=== PATIENT | male | born 1955 | race Caucasian/White ===

== ENCOUNTER → 2016-10-11 | Outpatient (CLI) | payer MEDICARE ==
--- NOTE | 2016-10-11 22:36 | PN ---
DATE OF SERVICE: 10/11/2016 A 61-year-old gentleman who has been for which the sleep center for treatment of obstructive sleep apnea-hypopnea syndrome. I discussed with the patient results of diagnostic sleep study and CPAP titration which was done recently in detail. Patient presently has been started on treatment with CPAP unit. He brought CPAP unit for checking it. He thought that sometimes it is too warm air going from the machine and we discussed that he should adjust himself level of humidity and heated humidifier in the machine according to what is the best for him. I checked CPAP unit. The patient was not able to use equipment for several days recently because he developed upper respiratory infection, but usage for the last 30 days is 22 nights for more than 4 hours, which indicates more than 70% compliance and this is acceptable compliance by today's standards. It showed significant leak from the mask up to 53 L per minute with normal apnea-hypopnea index 1.6. Pressure in the machine is 14 cm of water. I checked my dictation and reviewed results of the sleep study. The pressure which I was recommended was in the range of 10, 11. MEDICATIONS: 1. Atenolol. 2. Hydrochlorothiazide. 3. Amlodipine. 4. Vitamins. 5. Claritin. 6. Pravastatin. 7. Also, presently patient is on treatment with antibiotics and steroids for recent lung infection and problem with breathing. PHYSICAL EXAMINATION: GENERAL: Patient in no distress. VITAL SIGNS: BP 148/88, HR 56, RR 16. Weight 188 pounds. Temp 98.6. Oxygen saturation at room air 94%. [place] Sleepiness Scale is 7. HEENT: PERRLA, EOMI, Evaluation of the oropharynx showed tongue protrudes midline, extremely low position of soft palate, NECK: Supple. No JVD, Thyroid is not palpable. LUNGS: Clear to percussion and to auscultation. Good air exchange. No wheezing or rhonchi. HEART: S1, S2 regular. No murmurs, gallops, or rubs. ABDOMEN: Slightly obese, soft and nontender. Bowel sounds are present. No organomegaly appreciated. TAX MAP TECHNICIAN: Awake, alert, and oriented x3. Cranial nerves 2 to 7 intact. There is no fasciculation or atrophy noted. No focal deficits observed. IMPRESSION: 1. Obstructive sleep apnea/hypopnea syndrome in close to moderate range. Apnea-hypopnea index 14.8 with oxygen desaturation to 80.1%. Patient demonstrated good compliance with treatment, benefiting from treatment. Has some problem possibly related to the pressure and humidity. 2. Recent upper respiratory infection with some bronchospastic component. 3. Severe periodic limb movements have been documented during titration during diagnostic night. 4. Overweight. 5. History of stroke without residual deficit. 6. Memory problem. 7. Hypertension. 8. Hyperlipidemia. 9. Episodes of swelling of the legs. 10. Restless leg syndrome. PLAN: 1. I changed the pressure in the machine down to 11 cm of water. 2. Patient should continue to use equipment every night for the whole night. He knows how to adjust the humidity. 3. Watching and losing weight. 4. Sleep hygiene with regular time in bed for at least 8 hours. 5. No driving if feeling any sleepiness. Thank you very much for allowing me to participate in the management of your patient. Sincerely, Kendell Paul MD, PhD, FAASM Diplomat of [place] [employer], Sleep Medicine Board by [place] [employer] [employer] [facility] [place]
== END | disposition home or self-care (01) ==
LOC: SLEEP 16:33
PROVIDERS: ATTEND Internal Medicine
DX: G47.33 Obstructive sleep apnea (adult) (pediatric) (principal); I10 Essential (primary) hypertension; E78.5 Hyperlipidemia, unspecified; Z86.73 Personal history of transient ischemic attack (TIA), and cerebral infarction without residual deficits; Z99.89 Dependence on other enabling machines and devices; Z79.899 Other long term (current) drug therapy

== ENCOUNTER 2018-08-17 03:30 | Emergency (ER) | payer MEDICARE ==
[2018-08-17 03:38] VITALS: RESP 18
--- NOTE | 2018-08-17 04:58 | XR ---
EXAMINATION TYPE: XR KUB DATE OF EXAM: 08/17/2018 4:52 AM CLINICAL HISTORY: Right-sided pain TECHNIQUE: 4 views upright COMPARISON: None. FINDINGS: The bowel gas pattern is normal. There is no sign of intestinal obstruction or pneumoperito neum. Fecal pattern is normal. There is nondisplaced fracture of the lateral aspect of the right nint h rib. I see no pleural effusion. IMPRESSION: Nonacute abdomen. Right ninth rib fracture.
[2018-08-17 05:09] LABS: ALT 46 U/L (21-72); AST 30 U/L (17-59); Albumin 4.5 g/dL (3.5-5.0); Alkaline Phosphatase 43 U/L (38-126); Amylase 61 U/L (30-110); Anion Gap 6 mmol/L; Basophils % (A) 0 %; Blood Urea Nitrogen 15 mg/dL (9-20); Calcium 9.7 mg/dL (8.4-10.2); Carbon Dioxide 27 mmol/L (22-30); Chloride 108 mmol/L (98-107); Eosinophils # (A) 0.3 k/uL (0-0.7); Eosinophils % (A) 3 %; Glucose 109 mg/dL (74-99); HCT 47.6 % (39.0-53.0); HGB 15.5 gm/dL (13.0-17.5); Lipase 113 U/L (23-300); Lymphocytes # (A) 2.2 k/uL (1.0-4.8); Lymphocytes % (A) 24 %; MCH 29.2 pg (25.0-35.0); MCHC 32.5 g/dL (31.0-37.0); MCV 89.8 fL (80.0-100.0); Mean Platelet Volume 7.2; Monocytes # (A) 0.5 k/uL (0-1.0); Monocytes % (A) 6 %; Neutrophils # (A) 6.1 k/uL (1.3-7.7); Neutrophils % (A) 66 %; Platelet Count 310 k/uL (150-450); Potassium 4.5 mmol/L (3.5-5.1); RDW 13.5 % (11.5-15.5); Sodium 141 mmol/L (137-145); Total Bilirubin 0.6 mg/dL (0.2-1.3); Total Protein 7.2 g/dL (6.3-8.2); WBC 9.3 k/uL (3.8-10.6)
[2018-08-17] MEDS ORDERED: MORPHINE SULFATE 4 MG/ML SYRINGE IV STA (05:24)
--- NOTE | 2018-08-17 06:15 | CT ---
EXAM: CT Abdomen and Pelvis Without Intravenous Contrast CLINICAL HISTORY: ITS.REASON CT Reason: Pain TECHNIQUE: Axial computed tomography images of the abdomen and pelvis without intravenous contrast. CTDI is 10+0.085 + 0.085 mGy and DLP is 513.4 mGy- cm. This CT exam was performed using one or more of the following dose reduction techniques: automated exposure control, adjustment of the mA and/or kV according to patient size, and/or use of iterative reconstruction technique. COMPARISON: X-ray dated 08/17/2018. FINDINGS: Lung bases: Unremarkable. No mass. No consolidation. ABDOMEN: Liver: Unremarkable. Gallbladder and bile ducts: Unremarkable. No calcified stones. No ductal dilation. Pancreas: Unremarkable. No ductal dilation. Spleen: Unremarkable. No splenomegaly. Adrenals: Unremarkable. No mass. Kidneys and ureters: No renal calculi or hydronephrosis. Mild fat stranding about adjacent to both kidneys is nonspecific but may be related to chronic kidney disease. Stomach and bowel: Diverticulosis without evidence of diverticulitis. There is marked wall thickening of the proximal sigmoid colon. No obstruction. PELVIS: Appendix: No findings to suggest acute appendicitis. Bladder: Unremarkable. No stones. Reproductive: Unremarkable as visualized. ABDOMEN and PELVIS: Intraperitoneal space: Unremarkable. No free air. No significant fluid collection. Bones/joints: No acute fracture. Soft tissues: Unremarkable. Vasculature: Unremarkable. No abdominal aortic aneurysm. Lymph nodes: Unremarkable. No enlarged lymph nodes. IMPRESSION: 1. No renal calculi or hydronephrosis. 2. Mild fat stranding about adjacent to both kidneys is nonspecific but may be related to chronic kidney disease. 3. Diverticulosis without evidence of diverticulitis. There is marked wall thickening of the proximal sigmoid colon. This may be related to chronic inflammation, however, could be further characterized with colonoscopy as clinically indicated.
--- NOTE | 2018-08-17 06:42 | ED ---
Abdominal Pain HPI - General Chief Complaint: Abdominal Pain Stated Complaint: Abd Pain Time Seen by Provider: 08/17/18 04:10 Source: patient, family Mode of arrival: ambulatory Limitations: no limitations - History of Present Illness Initial Comments: This patient is a 63-year-old man who presents to be a viral for sharp right upper quadrant and right flank pain. The patient states that the pain is intermittent. It tends to come on mainly when he moves or sometimes when he takes a deep breath or when he presses on his side. The patient states she had a fall about 5 days ago now landing on his right side. No dyspnea. No hemoptysis. No chest pain. No vomiting or change in bowel movements. No change in urination. MD Complaint: abdominal pain Onset/Timin -: days(s) Location: RUQ, R flank Radiation: none Migration to: no migration Severity: severe Quality: sharp Consistency: intermittent Improves With: nothing Worsens With: movement Context: recent injury Associated Symptoms: denies other symptoms - Related Data Previous Rx's Medication Instructions Recorded Ibuprofen 800 mg PO TID #20 tablet 08/17/18 Allergies Allergy/AdvReac Type Severity Reaction Status Date / Time adhesive tape Allergy Rash/Hives Verified 08/17/18 03:39 Review of Systems ROS Statement: Those systems with pertinent positive or pertinent negative responses have been documented in the HPI. ROS Other: All systems not noted in ROS Statement are negative. Constitutional: Denies: fever, chills, weakness Respiratory: Denies: cough, dyspnea Cardiovascular: Denies: chest pain, palpitations Gastrointestinal: Reports: abdominal pain. Denies: nausea, vomiting, diarrhea, constipation, melena, hematochezia Genitourinary: Denies: dysuria, hematuria Musculoskeletal: Denies: back pain Skin: Denies: rash Neurological: Denies: weakness, numbness Past Medical History Past Medical History: CVA/TIA, Hypertension, Memory Impairment History of Any Multi-Drug Resistant Organisms: None Reported Additional Past Surgical History / Comment(s): hemorrhagic stroke age 52, trach with reversal, Past Psychological History: No Psychological Hx Reported Smoking Status: Former smoker Past Alcohol Use History: None Reported Past Drug Use History: Marijuana General Exam Limitations: no limitations General appearance: alert, in no apparent distress Head exam: Present: atraumatic, normocephalic Eye exam: Present: normal appearance. Absent: scleral icterus, conjunctival injection Respiratory exam: Present: normal lung sounds bilaterally, chest wall tenderness (There is tenderness palpation along the costal margin on the right side.), other (No obvious deformity.). Absent: respiratory distress, wheezes, rales, rhonchi, stridor, accessory muscle use, decreased breath sounds, prolonged expiratory Cardiovascular Exam: Present: regular rate, normal rhythm, normal heart sounds. Absent: systolic murmur, diastolic murmur, rubs, gallop GI/Abdominal exam: Present: soft, tenderness (Right upper quadrant), normal bowel sounds. Absent: distended, guarding, rebound, rigid, mass, pulsatile mass Extremities exam: Present: normal inspection, normal capillary refill. Absent: pedal edema, calf tenderness Back exam: Present: normal inspection. Absent: CVA tenderness (R), CVA tenderness (L), vertebral tenderness Neurological exam: Present: alert, normal gait Skin exam: Present: warm, dry, intact, normal color. Absent: rash Course Vital Signs 08/17/18 08/17/18 03:34 07:02 Temperature 97.8 F 97.7 F Pulse Rate 55 L 60 Respiratory 18 18 Rate Blood Pressure 170/82 145/88 O2 Sat by Pulse 97 99 Oximetry Medical Decision Making - Medical Decision Making This patient is 63-year-old man with right-sided abdominal pain after having had a fall. His workup does reveal that there is a right ninth rib fracture, nondisplaced. The computed tomography scan does not reveal any hepatic injury nor any blood in the abdomen. Discussed incentive spirometry and enzymes parameters ordered. Patient has received good analgesia and is provided prescriptions. Return parameters discussed. - Lab Data Result diagrams: 08/17/18 04:28 08/17/18 04:28 Lab Results 08/17/18 08/17/18 08/17/18 Range/Units 04:28 04:28 05:16 WBC 9.3 (3.8-10.6) k/uL RBC 5.30 (4.30-5.90) m/uL Hgb 15.5 (13.0-17.5) gm/dL Hct 47.6 (39.0-53.0) % MCV 89.8 (80.0-100.0) fL MCH 29.2 (25.0-35.0) pg MCHC 32.5 (31.0-37.0) g/dL RDW 13.5 (11.5-15.5) % Plt Count 310 (150-450) k/uL Neutrophils % 66 % Lymphocytes % 24 % Monocytes % 6 % Eosinophils % 3 % Basophils % 0 % Neutrophils # 6.1 (1.3-7.7) k/uL Lymphocytes # 2.2 (1.0-4.8) k/uL Monocytes # 0.5 (0-1.0) k/uL Eosinophils # 0.3 (0-0.7) k/uL Basophils # 0.0 (0-0.2) k/uL Sodium 141 (137-145) mmol/L Potassium 4.5 (3.5-5.1) mmol/L Chloride 108 H (98-107) mmol/L Carbon Dioxide 27 (22-30) mmol/L Anion Gap 6 mmol/L BUN 15 (9-20) mg/dL Creatinine 0.84 (0.66-1.25) mg/dL Est GFR (CKD-EPI)AfAm >90 (>60 ml/min/1.73 sqM) Est GFR (CKD-EPI)NonAf >90 (>60 ml/min/1.73 sqM) Glucose 109 H (74-99) mg/dL Calcium 9.7 (8.4-10.2) mg/dL Total Bilirubin 0.6 (0.2-1.3) mg/dL AST 30 (17-59) U/L ALT 46 (21-72) U/L Alkaline Phosphatase 43 (38-126) U/L Total Protein 7.2 (6.3-8.2) g/dL Albumin 4.5 (3.5-5.0) g/dL Amylase 61 (30-110) U/L Lipase 113 (23-300) U/L Urine Color Yellow Urine Appearance Clear (Clear) Urine pH 6.0 (5.0-8.0) Ur Specific [place] 1.013 (1.001-1.035) Urine Protein Negative (Negative) Urine Glucose (UA) Negative (Negative) Urine Ketones Negative (Negative) Urine Blood Moderate H (Negative) Urine Nitrite Negative (Negative) Urine Bilirubin Negative (Negative) Urine Urobilinogen <2.0 (<2.0) mg/dL Ur Leukocyte Esterase Negative (Negative) Urine RBC 6 H (0-5) /hpf Urine Mucus Rare H (None) /hpf Disposition Clinical Impression: Rib fracture Disposition: HOME SELF-CARE Condition: Fair Instructions (If sedation given, give patient instructions): Rib Fracture (ED) Prescriptions: Ibuprofen 800 mg PO TID #20 tablet Is patient prescribed a controlled substance at d/c from ED?: No Referrals: David Uribe MD [Primary Care Provider] - 1-2 days
[2018-08-17 06:55] LABS: Appearance,Urine Clear (Clear); Bilirubin,Urine Negative (Negative); Blood,Urine Moderate (Negative); Color,Urine Yellow; Glucose,Urine (UA) Negative (Negative); Ketones,Urine Negative (Negative); Leukocyte Esterase,Urine Negative (Negative); Mucus,Urine Rare /hpf; Nitrite,Urine Negative (Negative); Protein,Urine Negative (Negative); RBC,Urine 6 /hpf (0-5); Specific Gravity,Urine 1.013 (1.001-1.035); Urobilinogen,Urine <2.0 mg/dL (<2.0)
[2018-08-17 07:03] VITALS: BP 145/88; PULSE 60; TEMP 97.7
== END 2018-08-17 07:03 | disposition home or self-care (01) ==
LOC: EC 03:30
DX: S22.31XA Fracture of one rib, right side, initial encounter for closed fracture (principal); Z87.891 Personal history of nicotine dependence; Z91.048 Other nonmedicinal substance allergy status; Z86.73 Personal history of transient ischemic attack (TIA), and cerebral infarction without residual deficits; Z98.890 Other specified postprocedural states; W19.XXXA Unspecified fall, initial encounter; Y93.89 Activity, other specified; Y93.H1 Activity, digging, shoveling and raking; Y92.480 Sidewalk as the place of occurrence of the external cause
CPT/HCPCS: 36415; 80053; 82150; 83690; 85025; 81001; 74018; 74176; 99284; 96374; J2270

== ENCOUNTER → 2021-06-30 | Outpatient (CLI) | payer MEDICARE ==
--- NOTE | 2021-07-03 10:05 | MM ---
Reason for exam: clinical finding. Physical Findings: Nurse Summary: 8cm nodule in the right breast at 3 o'clock (nurse ms). MG Diagnostic Mammo w CAD BRIDGER Bilateral CC and MLO view(s) were taken. The breast tissue is almost entirely fat. Finding: There is an intermediate concern, suspicious high density, circumscribed lobulated mass in the right breast at least 6cm in size, extends out of field of view. These results were verbally communicated with the patient and result sheet given to the patient on 06/30/21. ASSESSMENT: Incomplete: need additional imaging evaluation, BI-RAD 0 RECOMMENDATION: Ultrasound of the right breast.
--- NOTE | 2021-07-03 10:07 | USB ---
Reason for exam: additional evaluation requested from abnormal screening. US Breast RT Right complete breast ultrasound includes all four quadrants, the retroareolar region and axilla. Finding demonstrates a 4.1 x 2.2 x 3.4cm oval, hypoechoic, vascular lesion at 6 o'clock and a 32 x 1.8cm oval, hypoechoic, vascular lesion at 7 o'clock. These results were verbally communicated with the patient and result sheet given to the patient on 06/30/21. ASSESSMENT: Highly suggestive of malignancy, BI-RAD 5 RECOMMENDATION: Ultrasound core biopsy of the right breast. Called Dr. Guadarrama's office with mammographic findings and has scheduled an appointment for the patient for 08/17/21 at 10:[address] Hubbard. Biopsy scheduled for 08/02/21 at 1:00. PRELIMINARY REPORT CALLED AND FAXED TO DR. HUBBARD ON 07/03/21.
== END | disposition home or self-care (01) ==
LOC: RADMAMWWP 13:58
PROVIDERS: ATTEND Family Medicine
DX: N63.0 Unspecified lump in unspecified breast (principal); R92.8 Other abnormal and inconclusive findings on diagnostic imaging of breast
CPT/HCPCS: 77066

== ENCOUNTER → 2021-08-02 | Day surgery (SDC) | payer MEDICARE ==
--- NOTE | 2021-08-02 13:41 | USB ---
EXAMINATION TYPE: US biopsy breast VAD RT, MG diagnostic mammo RT wo CAD DATE OF EXAM: 08/02/2021 CLINICAL HISTORY: R92.8 ABN MAMMO. Abnormal ultrasound. Palpable abnormality right breast. TECHNIQUE: Ultrasound guided core biopsy of right breast with clip placement and follow-up two-view mammogram. COMPARISON: Prior mammogram and ultrasound June 30, 2021 FINDINGS: The procedure of ultrasound guided core biopsy was explained to the patient. Benefits, alternatives, and risks were discussed. An informed consent was then obtained. The patient was placed in supine positioning for imaging and for the procedure. Preprocedure ultrasound redemonstrates large lobulated heterogeneous hypoechoic mass and/or masses with obvious deformity of the overlying skin centered 6 to 7:00 position in the right breast. The overlying skin was prepped and draped in usual sterile fashion. Lidocaine is used as anesthetic into the skin and subcutaneous tissue. Lidocaine with epinephrine is used as anesthetic into the deeper tissue up to area of concern in the right breast. Under ultrasound guidance, a vacuum assisted biopsy gun device was used to obtain 3 core samples. Following this, a biopsy clip was left in lesion. The patient tolerated the procedure well without any immediate complication. The patient was kept in the radiology department for short stay after the procedure and then discharged home in stable condition. Post procedure mammogram shows successful deployment of clip within the lobulated mass. IMPRESSION: Successful, uncomplicated ultrasound guided core biopsy of area of concern in the right breast, full pathology results to follow. 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 See Comment. Recommendation Surgical consult of the right breast. GALLITO
[2021-08-02 16:11] VITALS: BP 131/81; PULSE 60; RESP 18; TEMP 98.7
== END ==
LOC: RADUSWWP 12:00
PROVIDERS: ATTEND Surgery
DX: C50.821 Malignant neoplasm of overlapping sites of right male breast (principal)
CPT/HCPCS: 19083; 88305; 88342; 77065; A4648; J2001; 88341

== ENCOUNTER → 2021-08-07 | Outpatient (CLI) | payer MEDICARE ==
[2021-08-07 16:08] LABS: African American GFR (CKD) >90 (>60 ml/min/1.73 sqM); Blood Urea Nitrogen 17 mg/dL (9-20); Non-African American GFR(CKD) 82 (>60 ml/min/1.73 sqM)
--- NOTE | 2021-08-08 13:13 | CT ---
EXAMINATION TYPE: CT urogram wo/w con DATE OF EXAM: 08/07/2021 COMPARISON: CT abdomen and pelvis dated 08/17/2018. HISTORY: Benign essential microscopic hematuria and stomach discomfort CT DLP: 1950.6 mGycm, Automated Exposure Control for Dose Reduction was Utilized. CONTRAST: CT scan of the abdomen and pelvis is performed without oral and without and with IV Contrast, patient injected with 100 mL of Isovue 300. Urogram protocol with 3-D reconstructed images on independent wo rkstation and reviewed. FINDINGS: KUB: No renal calculi on noncontrast images. Postcontrast images show symmetric cortical medullary up take and excretion without hydronephrosis seen bilaterally. No suspicious solid or cystic mass in eit her kidney satisfactory opacification of the bilateral ureters without obstructing calculus or mass. No suspicious intraluminal mass or calculus in the bladder. LUNG BASES: In the inferior aspect right breast there is heterogeneous lobulated mass corresponding t o recent history of biopsy proven neoplasm with post surgical clip along the medial aspect measuring approximately 8.2 x 3.5 cm axial image 1 series 6. LIVER/GB: Occasional subcentimeter hypodense lesions throughout the liver are too small to further ch aracterize favored benign. PANCREAS: No significant abnormality is seen. SPLEEN: No significant abnormality is seen. ADRENALS: No significant abnormality is seen. BOWEL: Scattered colonic diverticula greatest at sigmoid colon level. No CT evidence for acute divert iculitis. Normal-appearing appendix from the cecum. Debris-filled stomach suggests recent meal ingest ion. Suboptimal evaluation bowel without enteric contrast. There is persistent moderate to severe con centric wall thickening in the sigmoid colon. This may product of poor distention. Underlying neoplas m not entirely excluded. Correlate with colonoscopy advised to separate from the last 3-5 years. PROSTATE/SEMINAL VESICLES: No gross abnormality seen. LYMPH NODES: No greater than 1cm abdominal or pelvic lymph nodes are appreciated. OSSEOUS STRUCTURES: Moderate to severe disc space narrowing with endplate sclerosis and moderate spur ring right L4-L5 level. OTHER: Stable tiny fat-containing right inguinal hernia. IMPRESSION: 1. No suspicious mass or calculus to account for patient's symptoms of hematuria. 2. Partial visualization of known large right breast mass or recently biopsied neoplasm. Suboptimal e valuation of bowel. Moderate wall thickening in the sigmoid colon redemonstrated. Advise colonoscopy follow-up this has not been performed in last 3 years to assess for possible malignancy. No suspiciou s mass or adenopathy in the abdomen or pelvis to suggest metastatic disease otherwise identified.
== END | disposition home or self-care (01) ==
LOC: RADCTMAIN 15:26
PROVIDERS: ATTEND Urology
DX: R31.1 Benign essential microscopic hematuria (principal)
CPT/HCPCS: 84153; 82565; 84520; 74178; 36415; 74400; Q9967

== ENCOUNTER → 2021-08-25 | Outpatient (CLI) | payer MEDICARE ==
--- NOTE | 2021-08-25 17:11 | CT ---
EXAMINATION TYPE: CT chest w con DATE OF EXAM: 08/25/2021 COMPARISON: 02/02/2016 HISTORY: chest lump CT DLP: 351.3 mGycm Automated exposure control for dose reduction was used. CONTRAST: Performed with IV Contrast, patient injected with 100 mL of Isovue 300. The lungs are clear of infiltrate. There is no evidence of a pulmonary mass. There is no pleural effu karl. Heart size is normal. There is no pericardial effusion. There is no mediastinal adenopathy. There are no hilar masses. Thoracic aorta is intact. There is no aneurysm or dissection. The upper abdominal soft tissues are intact. Thoracic spine is intact. Sternum is intact. There is no compression fracture. There is mixed density mass on the subcutaneous tissues over the anterior right chest wall that is pr obably a breast mass. The lesion is mostly fluid density. The lowest attenuation is 24. Other areas a re slightly higher attenuation and have density 41. Lesion measures 7.9 x 3.9 x 5.4 cm. There is smal l calcification. Lesion appears to be loculated. IMPRESSION: Large subcutaneous mixed density mass in the region of the right breast. Ultrasound would be helpful for further evaluation. I would consider possibilities of tumor and abscess. Lesion appears new anay red to old exam.
== END | disposition home or self-care (01) ==
LOC: RADCTMAIN 16:03
PROVIDERS: ATTEND Internal Medicine Hematology & Oncology
DX: Z03.89 Encounter for observation for other suspected diseases and conditions ruled out (principal); C49.9 Malignant neoplasm of connective and soft tissue, unspecified
CPT/HCPCS: 71260; Q9967

== ENCOUNTER 2022-05-22 09:08 | Day surgery (SDC) | payer MEDICARE ==
[2022-05-21 08:24] VITALS: BMI 28.1
[~2022-05-22 09:08] MED LIST: LACTATED RINGERS 1,000 ML IV SCH; LIDOCAINE 1% (10MG/ML) FOR IV START INTRADERMA PRN
[2022-05-22 09:48] VITALS: TEMP 97
[2022-05-22] MEDS ORDERED: PROPOFOL 10 MG/ML 20 ML VIAL IV ONE (10:40)
--- NOTE | 2022-05-22 10:56 | P.PCN ---
Date of Procedure: 05/22/22 Procedure(s) Performed: BRIEF HISTORY: Patient is a 66-year-old pleasant male scheduled for an elective colonoscopy as a part of screening for colorectal neoplasia. PROCEDURE PERFORMED: Colonoscopy. PREOPERATIVE DIAGNOSIS: Screening for colon cancer. IV sedation per Anesthesia. PROCEDURE: After informed consent was obtained, the patient, was brought into the endoscopy unit. IV sedation was administered by Anesthesia under continuous monitoring. Digital rectal examination was normal. Initially the Olympus CF-160 flexible video colonoscope was then inserted in the rectum, gradually advanced into the cecum without any difficulty. Careful examination was performed as the scope was gradually being withdrawn. Ileocecal valve and the appendiceal orifice were visualized and appeared normal. Prep was excellent. Mucosa of the cecum, ascending colon, transverse colon, descending colon, sigmoid colon, and rectum appeared normal. Scattered sigmoid diverticulosis. Retroflexion was performed in the rectum and no lesions were seen. The patient tolerated the procedure well. IMPRESSION: Normal-appearing colon from rectum to cecum was colorectal neoplasia . Scattered sigmoid diverticulosis. RECOMMENDATIONS: Findings of this examination were discussed with the patient well as his family. He was advised to have a repeat screening colonoscopy in 10 years..
[2022-05-22 11:48] VITALS: PULSE 52
[2022-05-22 11:50] VITALS: BP 155/83; RESP 14
== END 2022-05-22 12:05 | disposition home or self-care (01) ==
LOC: ORWHC2ENDO 09:08
PROVIDERS: ATTEND Internal Medicine Gastroenterology
DX: K59.00 Constipation, unspecified (principal)
CPT/HCPCS: J2704; G0121; 45378

== ENCOUNTER → 2022-12-25 | Outpatient (CLI) | payer MEDICARE ==
[2022-12-25 08:00] LABS: African American GFR (CKD) >90 (>60 ml/min/1.73 sqM); Blood Urea Nitrogen 15 mg/dL (9-20); Non-African American GFR(CKD) 89 (>60 ml/min/1.73 sqM)
--- NOTE | 2022-12-25 09:19 | CT ---
EXAMINATION TYPE: CT abdomen pelvis w con DATE OF EXAM: 12/25/2022 COMPARISON: 08/07/2021. Sodium HISTORY: Lower abdominal pain CT DLP: 826.7 mGycm CONTRAST: CT scan of the abdomen and pelvis is performed with Oral Contrast and with IV Contrast, patient injec felicita with 100 mL of Isovue 300. FINDINGS: LUNG BASES-: No visible nodule. No infiltrate. Lobulated mass right anterior chest wall appears to h ave been removed with residual seroma seen. LIVER/GB: No calcified gallstones. No space occupying hepatic lesion. Biliary tree is of normal ca liber. PANCREAS: No inflammation. No distinct mass. SPLEEN: No splenic enlargement. No lesion seen. ADRENALS: No nodule. No thickening. KIDNEYS/BLADDER: No hydronephrosis. No nephrolithiasis. No distinct renal mass. Urinary bladder g rossly unremarkable. BOWEL: Normal appendix. Normal bowel caliber. No inflammation. There is long segment wall thickenin g involving the sigmoid colon which may reflect nonspecific colitis with vascular, inflammatory and i nfectious etiologies considered. GENITAL ORGANS: No gross abnormality. LYMPH NODES: No greater than 1cm abdominal or pelvic lymph nodes are appreciated. AORTA: No significant abnormality. OSSEOUS STRUCTURES: No significant abnormality is seen. OTHER: No significant additional abnormality is seen. IMPRESSION: 1. There is long segment wall thickening. Involving the sigmoid colon which may reflect nonspecific c olitis with vascular, inflammatory and infectious etiologies considered. 2.Lobulated mass right anterior chest wall appears to have been removed with residual seroma seen.
== END | disposition home or self-care (01) ==
LOC: RADCTMAIN 07:00
PROVIDERS: ATTEND Internal Medicine Gastroenterology
DX: K63.89 Other specified diseases of intestine (principal); R10.30 Lower abdominal pain, unspecified; R22.1 Localized swelling, mass and lump, neck
CPT/HCPCS: 82565; 84520; 74177; 36415; Q9967